=== PATIENT | female | born 1960 | race Caucasian/White ===

== ENCOUNTER 2019-03-01 14:42 | Emergency (ER) | payer BC ==
[~2019-03-01] VITALS: Ht 154.9 cm; Wt 84.8 kg
[2019-03-01 14:49] VITALS: Ht 154.9 cm; Wt 84.8 kg
[2019-03-01 16:53] VITALS: BP 140/87
== END 2019-03-01 16:53 | disposition home or self-care (01) ==
LOC: ED 14:42
DX: J45.901 Unspecified asthma with (acute) exacerbation (principal); Z85.3 Personal history of malignant neoplasm of breast; Z98.890 Other specified postprocedural states; Z90.710 Acquired absence of both cervix and uterus
CPT/HCPCS: J2930; J7613; J7644